=== PATIENT | female | born 1965 | race Caucasian/White ===

== ENCOUNTER → 2023-06-07 09:24 | Outpatient (REF) | payer OTHER, SELFPAY | LOC: WDC 09:24 | PROVIDERS: ATTENDING PHYSICIAN Nurse Practitioner Family; FAMILY PHYSICIAN Family Medicine | DX: N63.11 Unspecified lump in the right breast, upper outer quadrant (principal) | CPT/HCPCS: 76642; 77061; 77065 ==

== ENCOUNTER → 2024-02-09 17:11 | Outpatient (REF) | payer OTHER, SELFPAY | LOC: WDC 17:11 | PROVIDERS: ATTENDING PHYSICIAN Obstetrics & Gynecology; FAMILY PHYSICIAN Family Medicine | DX: Z12.31 Encounter for screening mammogram for malignant neoplasm of breast (principal) | CPT/HCPCS: 77063; 77067 ==

== ENCOUNTER → 2024-06-15 09:43 | Outpatient (REF) | payer OTHER, SELFPAY | LOC: RCS 09:43 | PROVIDERS: ATTENDING PHYSICIAN Orthopaedic Surgery; FAMILY PHYSICIAN Family Medicine | DX: Z01.818 Encounter for other preprocedural examination (principal) | CPT/HCPCS: 93005 ==

== ENCOUNTER 2024-06-25 22:22 | Inpatient (IN) | payer OTHER, SELFPAY ==
[2024-06-25] VITALS (21 sets, daily range): BP systolic 74–104; BP diastolic 45–55; BMI 27.4
--- NOTE | 2024-06-25 16:44 | ED.GENMED ---
History of Present Illness
General
Chief Complaint: Blood Pressure Problem
Source: patient
Exam Limitations: none
Time Seen by Provider: 06/25/24 16:35
Nursing documentation reviewed up to this point in time: agreed with
History of Present Illness
History of Present Illness:
Patient presents to Emergency Department for outpatient surgical center where she was found to have persistent hypotension with dizziness, after completing elective outpatient right hip surgery secondary to progressive arthritis. Per
anesthesiologist to observe the patient in PACU, patient received isobaric spinal with short acting mepivacaine and propofol. Secondary to hypotension, patient received total of 4 L of IV fluids, along with 2 doses of ephedrine, with minimal
improvement in blood pressure. Patient also received couple doses of Dilaudid postprocedure. At the time of evaluation ED, patient has no complaints. Denies chest pain or palpitations. Denies shortness of breath. Denies nausea or vomiting.
Denies dizziness. Denies headache. Patient does state that when she sees her primary care physician annually, her blood pressure is on the lower side.
Review of Systems
Review of Systems
Allergies reviewed?: Yes
All Other Systems: ROS reviewed and negative except as documented in HPI and ROS
Constitutional: Reports no symptoms; Denies fever or chills
Respiratory: Reports no symptoms
Cardiac: Reports other (Near syncope)
ABD/GI: Reports no symptoms
Skin: Reports no symptoms
Neurological: Reports dizzy
Phy Exam
Physical Exam
Physical Exam:
Physical Exam
General: no apparent distress, not acutely ill. afebrile
Head: nc/at. eomi
Neck: supple. no meningeal signs.
Heart: s1/s2 regular rate and rhythm, no murmur.
Lungs: no acute respiratory distress. clear bilaterally
Abdomen: normal bowel sounds. not tender.
Neuro: alert and oriented x 3. no focal neurological deficits
Skin: no rash
Psychiatric: well kept. interactive and cooperative
Extremities: right hip, post surgical swelling/discoloration noted
Course
Orders/Labs/Results
Orders:
Orders
06/25/24 16:35
Electrocardiogram (*1) Urgent
Reason for Study: Bradycardia / Tachycardia
EKG- Treatment ONCE
06/25/24 17:05
Basic Metabolic Panel Urgent
Complete Blood Count/No Diff Urgent
Ferritin Urgent
Comment: ADD ON
Iron Urgent
Comment: ADD ON
Magnesium Urgent
TSH Urgent
Total Iron Binding Urgent
Comment: ADD ON
06/25/24 17:52
Add On- LAB Urgent
Tests Added?: iron, ferritin, TIBC
06/25/24 20:30
0.9% Sodium Chloride 1000 ml [Nss] 1,000 ml IV 100 mls/hr
06/25/24 21:15
Type And Crossmatch [Type+Screen] Urgent
CBC/With Diff [Complete Blood Count/With Diff] Urgent
06/25/24 21:42
Blood Bank Products [* Blood Bank Products] Urgent
Blood Bank Products: *Packed RBC Leuko(PRBC's)
Quantity: 1
Transfuse Today: Yes
Reason: Anemia
Other reason: post op
06/25/24 21:58
Admit/Transfer Patient As Directed
Co-Sign Provider:
Level of Care: Inpatient admission
Assign to:: IMU- Intermediate Care
Physician / Group: martinez fernandez
Diagnosis: Hypotension secondary postop anemia right hip replacement
Reason for Hospitalization: Hypotension secondary postop anemia right hip replacement
Expected length of stay greater than two midnights?: Yes
ELOS- Estimated Length of Stay in days: 3
I certify the patient meets the requirements for IP care: Yes
Code Status As Directed
Resuscitation Status: Full Code
06/25/24 22:01
PRN Pain Medication Management As Directed
May give lesser potent ordered pain med per pt: Yes
preference::
Protocol:: Medication orders for pain may be administered in a
manner that supports deferring to patient preference
when the pt is:
- Requesting an ordered lesser potent pain medication.
Least to most potent pain medications are defined
as: acetaminophen < NSAID < tramadol < opioids
(morphine, oxycodone, hydromorphone).
- Requesting a lesser dose of the same medication IF
ORDERED.
- Requesting a less intrusive route of administration
if both routes are prescribed by the provider (PO <
IV).
06/25/24 22:27
Oxycodone [Roxicodone] 5 mg PO Q6H PRN
06/25/24 22:31
ABO2 Urgent
K Wristband Number:
Associate notified that ABO2 has been ordered: [id number]
Date: 06/25/24
Time: 21:27
Channel Sales Manager ID: [id number]
06/25/24 22:34
Tramadol HCl [Ultram] 100 mg PO Q6H PRN
06/25/24 22:45
Oxycodone [Roxicodone] 10 mg PO Q6H
06/25/24 23:00
Acetaminophen [Tylenol] 1,000 mg PO Q8H
Calcium Carbonate [Oscal Rodrick 500] 1,500 mg PO Q4H
Diphenhydramine [Benadryl] 25 mg PO Q6H
06/26/24 01:29
Activity As Directed
Activity Level: As Tolerated
Intake/ Output As Directed
Frequency: Per unit guidelines
Pneumatic Compression Sleeves As Directed
Type: Knee high
Vascular Checks As Directed
Location: right thigh
Frequency: q4h
Comment: Monitor for ecchymosis or compartment syndrome
Vital Signs As Directed
Frequency: Per unit guidelines
Ot Eval And Treat Routine
Pt Eval And Treat Routine
Activity Level: As Tolerated
DX Deep Vein Thrombosis Video Routine
06/26/24 05:47
Basic Metabolic Panel IN AM
Complete Blood Count/With Diff IN AM
06/26/24 Breakfast
Regular
At Your Request: Full Participation
06/26/24 08:00
Docusate Sodium [Colace] 100 mg PO BID
Gabapentin [Neurontin] 100 mg PO TID
06/26/24 22:00
Polyethylene Glycol Powder [Miralax] 17 grams PO HS
Abnormal Lab Results
06/25/24 06/25/24
17:05 21:15
WBC 10.9 H 10^3/uL
(4.8-10.8)
RBC 3.28 L 10^6/uL 2.95 L 10^6/uL
(4.20-5.40) (4.20-5.40)
Hgb 9.9 L g/dL 8.9 L g/dL
(12.0-16.0) (12.0-16.0)
Hct 29.5 L % 26.5 L %
(37.0-47.0) (37.0-47.0)
Absolute Neuts (auto) 7.5 H 10^3/uL
(1.4-6.5)
Absolute Lymphs (auto) 0.6 L 10^3/uL
(1.2-3.4)
Neutrophils % 85.6 H %
(42.2-75.2)
Lymphocytes % 6.9 L %
(20.5-51.1)
Chloride 109 H mmol/L
(98-107)
Carbon Dioxide 18 L mmol/L
(22-30)
Creatinine 0.5 L mg/dL
(0.6-1.0)
Glucose 166 H mg/dl
(70-99)
Calcium 8.2 L mg/dl
(8.4-10.2)
% Saturation 17 L %
(20-50)
TSH 0.43 L uIU/ml
(0.47-4.68)
Crossmatch IS Only See Detail
06/25/24 21:15
06/25/24 17:05
Vital Signs
Initial and Last Documented VS:
Initial Vital Signs
BP
97/55
06/25/24 16:34
Last Documented Vital Signs
Temp Pulse Resp BP Pulse Ox
98.5 F 71 19 91/57 98
06/26/24 08:32 06/26/24 12:45 06/26/24 12:45 06/26/24 12:44 06/26/24 07:49
MDM/Problems Addressed
MDM/Problems Addressed:
Primary care physician's office note from 2-year ago reviewed -blood pressure noted to be 108/68.
Anemia, likely secondary to hemodilution from administration of IV fluid boluses. Iron studies ordered.
Although patient's blood pressure remains mildly low, as patient is asymptomatic, patient will be observed without any further treatment, as patient has already received 4 L of IV fluids. Patient does state that she has been able to urinate freely
without difficulties.
Despite prolonged course of observation ED, patient's blood pressure remains labile. In addition, when rechecked with orthostatic vital signs and ambulation, patient noted to become mildly hypotensive with symptoms, i.e. dizziness/near syncope.
Patient unsafe to be discharged home at this time.
*EKG
Interpreted by ED Provider?: Yes
EKG Intrepretation Date: 06/25/24
Heart Rate: 90
Rate: normal
Rhythm: sinus
Elfrida: normal axis
Interval: normal interval
*Critical Care Note
Total Time (30-74mins, 75-104mins- exclusive of procedures): Not Applicable
ED Attending Note
-
Portions of this chart may have been created with voice recognition software.� Occasional wrong word or��sound alike� substitutions may have occurred due to the inherent limitations of voice recognition software.
Discharge Plan
Departure
Patient Disposition: Admit
Date of Disposition: 06/25/24
Time of Disposition: 20:33
Admit to: Telemetry
Presentation/result/management discussed w/ accepting MD/DO: Hospitalist
Discharge Problem:
Orthostatic hypotension, Near syncope
Interventions
Interventions:
*General Assessment Last Done: 06/25/24 16:36
*Neglect/Abuse Screening Last Done: 06/25/24 16:36
*ED- Fall Risk Assessment Last Done: 06/25/24 16:36
*ED COVID-19 Vaccine History Last Done: 06/25/24 16:36
ED- Cardiac Assessment Last Done: 06/25/24 16:42
ED- Neurological Assessment Last Done: 06/25/24 16:42
ED- Pulmonary Assessment Last Done: 06/25/24 16:42
[2024-06-25 17:31] LABS: Hematocrit 29.5 % (37.0-47.0); Hemoglobin 9.9 g/dL (12.0-16.0); Mean Corp Hgb Conc. 33.6 g/dL (33.0-37.0); Mean Corpuscular Hgb 30.2 pg (27.0-31.0); Mean Corpuscular Volume 89.9 fL (81.0-99.0); Mean Platelet Volume 9.8 fL (7.4-10.4); Platelet Count 228 10^3/uL (130-400); Red Blood Cell Count 3.28 10^6/uL (4.20-5.40); Red Cell Dist. Width 11.9 % (11.5-14.5); White Blood Cell Count 10.9 10^3/uL (4.8-10.8)
[2024-06-25 17:44] LABS: Blood Urea Nitrogen 14 mg/dl (7-17); Calcium 8.2 mg/dl (8.4-10.2); Carbon Dioxide 18 mmol/L (22-30); Chloride 109 mmol/L (98-107); Estimated Creatinine Clearance 87 ml/min; Glucose 166 mg/dl (70-99); Magnesium 1.6 mg/dl (1.6-2.3); Potassium 3.6 mmol/L (3.5-5.1); Sodium 137 mmol/L (135-145); eGFR > 60.00
[2024-06-25 18:05] LABS: Iron 51 ug/dl (37-170)
[2024-06-25 18:14] LABS: Percent Saturation 17 % (20-50); TSH 0.43 uIU/ml (0.47-4.68); Total Iron Binding Capacity 289 ug/dl (265-497)
[2024-06-25 18:39] LABS: Ferritin 82.2 ng/ml (11.1-264.0)
--- NOTE | 2024-06-25 20:38 | HPS.HSE ---
Family Physician
-
Family Physician: Mary Rawls
Chief Complaint
-
Hypotension
History of Present Illness
59-year-old female status post elective right hip surgery secondary to progressive arthritis to her right hip by Dr. Armando [facility]. Patient received ice empiric spinal with short acting mepivacaine and propofol secondary to
hypotension she received 4 L of IV fluids along with 2 doses of ephedrine with minimal improvement in her blood pressure to 80s over 50s. She did require several doses of Dilaudid postop for pain. While in the ED she continues to be persistently
hypotensive despite multiple hours in the ER. Orthostatic vitals were attempted she became mildly hypotensive with dizziness and near syncope and is unsafe to be discharged to home. She reports feeling fine while lying down but when she stands up
to walk she feels extremely dizzy as if she is going to pass out. She denies current headache, fever, chills, chest pain, palpitations, cough, shortness of breath, abdominal pain, nausea, vomiting, diarrhea, urinary symptoms. She currently does
not have any pain to the right hip. The right hip has a Merisel dressing intact with no surrounding swelling or ecchymosis distal sensation to the feet are intact dorsal pedal pulse +2
Medical History
Past Medical History
Past Medical History: Reports Other
Additional Past Medical History:
HLD
Seasonal allergies
Right hip severe DJD
Hx depression
Past Surgical History: Reports Other
Additional Past Surgical History:
Status post right hip replacement
Social History
Tobacco: Non-smoker
Alcohol: Occasional (1 glass of wine twice a month)
Drug: None
Personal:
Living: With Family
Employment: Retired
Family History
Family History: Other (Twin sister breast cancer age 35 living brother colon cancer age 35 mother living history of hyperlipidemia, HTN)
Allergies / Home Medications
Allergies reflects when Allergies were last updated in [facility].
Home Medications with original date entered in [facility]
Allergy/Medication List:
Allergies
Allergy/AdvReac Type Severity Reaction Status Date / Time
No Known Allergies Allergy Verified 06/25/24 16:35
Home Medications
Aspir-81 81 mg PO BID 06/25/24
Colace 100 mg PO BID 06/25/24
Miralax 17 mg PO HS 06/25/24
Tylenol 1,000 mg PO Q8H 06/25/24
azelastine 1 spray intranasal DAILY 06/25/24
calcium carbonate 1,500 mg PO Q4H PRN indigestion 06/25/24
diphenhydramine HCl 25 mg PO Q6H PRN rash 06/25/24
gabapentin 100 mg PO TID 06/25/24
meloxicam 7.5 mg PO BID 06/25/24
omeprazole 20 mg PO DAILY 06/25/24
oxycodone 5 mg PO Q6H PRN mod pain 06/25/24
oxycodone 10 mg PO Q6H PRN severe pain 06/25/24
rosuvastatin 10 mg tablet (Crestor) 10 mg PO DAILY 06/25/24
tramadol 100 mg PO Q6H PRN mild pain 06/25/24
Review of Systems
-
History Source: Patient and Family ()
A 12 point ROS was completed and negative except as noted: Yes
Constitutional: Denies Fever or Chills
EENT: Denies Sore Throat or Runny Nose
Respiratory: Denies Cough or Trouble Breathing
Cardiac: Denies Chest Pain, Palpitations or Syncope
Abdomen/GI: Denies Abdominal Pain, Nausea, Vomiting, Diarrhea or Constipated
: Denies Dysuria, Frequency, Flank Pain, Incontinence or Difficulty Voiding
Musculoskeletal: Reports Other (Right hip postop with Mirasel dressing intact no surrounding ecchymosis or edema)
Skin: Denies Itching or Rash
Neurological: Denies Dizzy or Headache
Endocrine: Reports No Symptoms
Hematologic/Lymphatic: Reports No Symptoms
Psych: Reports Calm
Physical Exam
Vital Signs
Vital Signs
Temp Pulse Resp BP Pulse Ox
98.1 F 60 13 88/51 94
06/25/24 16:36 06/25/24 19:15 06/25/24 19:15 06/25/24 19:00 06/25/24 19:15
Physical Exam
General: Comfortable and Conversant; No Pain, Fever or Chills
HEENT: NormoCephalic, Anicteric, Tracheostomy Collar, PERRLA, [place] Conjunctivae and No Ptosis
Respiratory: Clear; No Wheezes or Rales
Cardiac: S1/S2, Regular Rhythm, Gallop and Peripheral Edema (Right hip postop with Mirasel dressing intact no surrounding ecchymosis or edema); No Murmur or Rub
GI: Soft, Non Tender, Non Distended, Normal Bowel Sounds and No Hepatosplenomegaly
Rectal: Deferred by Provider
Genito-urinary: Deferred by me
Musculoskeletal: No Clubbing, No Cyanosis, No Edema and Other (Right hip postop with Mirasel dressing intact no surrounding ecchymosis or edema)
Skin: Warm and Dry; No Rash or Jaundice
Neuro: AO x 3, No Motor Deficits, Nonfocal/grossly intact and No Sensory Deficits; No Slurred Speech, Facial Droop, Tremors or Sedated
Psych: Calm
Laboratory Results
-
06/25/24 17:05
06/25/24 17:05
Impression/Plan
-
Impression/plan:
Inpatient IMU
#Acute hypotension status post right hip surgery today 06/25/2024 likely secondary to blood loss anemia
BP 88/51 status post prior 4 L IV fluids 2 doses of ephedrine at surgery center
Persistent hypotension despite total 5 L of IV fluid 1 L given in ER
-Hemoglobin drop at 9.9�8.9
-Per discharge instructions was to start gabapentin 100 mg 3 times daily, HOLD meloxicam 7.5 mg twice daily due to anemia,
Tylenol 1000 mg every 8 hours scheduled, oxycodone 5 mg 1 tablet every 4 hours moderate pain 2 tablets every 4 hours severe pain
-Colace 100 mg daily MiraLAX 17 g at at bedtime
-Omeprazole 20 mg daily, calcium carbonate 750 mg 1 to 2 tablets every 6 hours indigestion
#Anemia-blood loss
Hgb 9.9, MCV 89.9 CBC from 06/16/2025 were 12.6
TIBC 289, iron sat 17%, iron 51
-Will check stat CBC
-Type and screen
--Hemoglobin drop at 9.9�8.9
-Will transfuse 1 unit of blood
-Check CBC in a.m. monitor right thigh for any ecchymosis, tenting or pain
#HLD
-Continue Crestor 10 mg daily
#Seasonal allergies
Patient uses Azelastine nasal spray 137 mcg 1 spray each nostril daily
DVT prophylaxis
SCDs
Hold aspirin 81 mg twice daily now
full code
[2024-06-25] MEDS: NSS 1000 IV (20:58)
[2024-06-25 21:22] LABS: % Basophils 0.1 % (0-2); % Immature Granulocytes 0.5 % (0-0.5); % Lymphocytes 6.9 % (20.5-51.1); % Monocytes 6.9 % (1.7-9.3); % Neutrophils 85.6 % (42.2-75.2); Absolute Lymphocytes 0.6 10^3/uL (1.2-3.4); Absolute Monocytes 0.6 10^3/uL (0.1-0.6); Absolute Neutrophils 7.5 10^3/uL (1.4-6.5); Hematocrit 26.5 % (37.0-47.0); Hemoglobin 8.9 g/dL (12.0-16.0); Mean Corp Hgb Conc. 33.6 g/dL (33.0-37.0); Mean Corpuscular Hgb 30.2 pg (27.0-31.0); Mean Corpuscular Volume 89.8 fL (81.0-99.0); Mean Platelet Volume 9.6 fL (7.4-10.4); Nucleated Red Blood Cells % 0 %; Platelet Count 197 10^3/uL (130-400); Red Blood Cell Count 2.95 10^6/uL (4.20-5.40); Red Cell Dist. Width 11.9 % (11.5-14.5); White Blood Cell Count 8.8 10^3/uL (4.8-10.8)
--- NOTE | 2024-06-25 21:48 | W.PN.UPDATE ---
Update Note
Progress Note Update
This is an addendum to the H&P written by Barbara Tse on 06/25/2024.
59-year-old female past medical history of elective right hip surgery secondary to progressive arthritis today, hypercholesteremia, depression presenting from outpatient surgical center for persistent hypotension after elective right hip surgery
today.� She received empiric spinal with short acting mepivacaine and propofol.� She received 2 dose of ephedrine and 4 L of IV fluids with minimal improvement in her blood pressure over 80s over 50s.
Her normal blood pressure is around 100s.�
Hemoglobin of 9.9 initially,�and now 8.9 from 12.5 on June 16 likely dilutional from IV fluids given at surgical center.�
On examination no hematoma.�
Blood pressure improving currently to her baseline of 100 systolic.� Continue IV fluids.� 1 unit of blood.�
[2024-06-26] VITALS (21 sets, daily range): BP systolic 85–123; BP diastolic 45–68; PULSE 59–76; O2SAT 97–99
[2024-06-26] MEDS: ROXICODONE 10 MG PO ×2 (01:20→09:31)
[2024-06-26] MEDS: OSCAL CAL 500 1500 MG PO ×4 (01:21→12:50)
[2024-06-26] MEDS: TYLENOL 1000 MG PO ×2 (01:21→09:32)
[2024-06-26 06:20] LABS: % Basophils 0.1 % (0-2); % Immature Granulocytes 0.5 % (0-0.5); % Lymphocytes 17.2 % (20.5-51.1); % Neutrophils 70.2 % (42.2-75.2); Absolute Immature Granulocytes 0.1 10^3/uL (0-0.05); Absolute Lymphocytes 1.8 10^3/uL (1.2-3.4); Absolute Monocytes 1.3 10^3/uL (0.1-0.6); Absolute Neutrophils 7.3 10^3/uL (1.4-6.5); Hematocrit 29.8 % (37.0-47.0); Hemoglobin 10.1 g/dL (12.0-16.0); Mean Corp Hgb Conc. 33.9 g/dL (33.0-37.0); Mean Corpuscular Hgb 30.5 pg (27.0-31.0); Mean Platelet Volume 10.2 fL (7.4-10.4); Nucleated Red Blood Cells % 0 %; Platelet Count 203 10^3/uL (130-400); Red Blood Cell Count 3.31 10^6/uL (4.20-5.40); Red Cell Dist. Width 12.3 % (11.5-14.5); White Blood Cell Count 10.4 10^3/uL (4.8-10.8)
[2024-06-26 06:31] LABS: Blood Urea Nitrogen 10 mg/dl (7-17); Calcium 9.1 mg/dl (8.4-10.2); Carbon Dioxide 26 mmol/L (22-30); Chloride 110 mmol/L (98-107); Estimated Creatinine Clearance 87 ml/min; Glucose 102 mg/dl (70-99); Potassium 3.8 mmol/L (3.5-5.1); Sodium 138 mmol/L (135-145); eGFR > 60.00
[2024-06-26] MEDS: NSS 1000 IV (07:53)
[2024-06-26] MEDS: OSCAL CAL 500 PO (07:55)
[2024-06-26] MEDS: COLACE 100 MG PO (09:30)
[2024-06-26] MEDS: NEURONTIN 100 MG PO (09:31)
[2024-06-26] MEDS: ROXICODONE PO (12:47)
--- NOTE | 2024-06-26 13:05 | W.DCSUMMARY ---
Discharge Summary
Discharge Data
Date of Admission: 06/25/24
Date of Discharge: 06/26/24
-
Pending Results: No
Hospital Course
59 female history of hyperlipidemia right hip DJD D s/p right LINDY a, depression
Presented postoperatively after a right total hip arthroplasty for hypotension. Required multiple fluid boluses along with brief vasopressor support. Hemoglobin at the beginning of June 2024 was in the 12's. Repeat check was in the nines and
then 8. Anemia was associated with dizziness on standing. Received 1 unit of PRBCs. Blood pressure improved. Orthostatics negative.
Repeat CBC as outpatient with primary care.
Will need to see ortho as an outpatient as well.
Discharge home once seen by physical therapy/Occupational Therapy
Seen and examined on day of discharge.
States that the oxycodone 10 mg is too strong for her. Recommend not to use this or decrease dose to 5 mg
Otherwise no new complaints. Stood up without any dizziness
No back pain/abdominal pain
NAD
Scleral Anicteric
MMM
No JVD
CTABL
RRR, S1/S2
Soft, NT, ND, BS+
Right hip without evidence of hematoma or significant bruising. Bandages appear clean dry and intact. Area is soft and sensations are intact
Warm, Dry
AAOx3
Calm
More than 30 minutes spent in discharge including
Final examination of the patient
Summarizing hospital stay
Instructions for continuing care to all relevant caregivers
Preparation of discharge records, prescriptions, and referral forms
Total time spent (in minutes): 28mins
Discharge Plan
-
Patient Disposition: Home (Routine Discharge)
Discharge Diagnosis/Procedures: Hypotension
Symptomatic anemia requiring 1 unit PRBC
Condition: Good
Diet: As tolerated
Activity: As tolerated
Blood Work: cbc in 1 week with family provider
Other Services: VN, PT and OT
Activity Restrictions/Additional Instructions:
Presented postoperatively after a right total hip arthroplasty for hypotension. Required multiple fluid boluses along with brief vasopressor support. Hemoglobin at the beginning of June 2024 was in the 12's. Repeat check was in the nines and
then 8. Anemia was associated with dizziness on standing. Received 1 unit of PRBCs. Blood pressure improved. Orthostatics negative.
Repeat CBC as outpatient with primary care.
Will need to see ortho as an outpatient as well.
Referrals:
Mary Rawls DO [Family Provider] -
Additional Discharge Medication Instructions: Take NSAIDs with food
-Do not take meloxicam naproxen together.
Prescriptions:
Continued
polyethylene glycol 3350 [Miralax] 17 gram Powder In Packet
17 g PO HS
Tums 300 mg (750 mg) Tablet,Chewable
900 mg PO BID
aspirin 81 mg Tablet,Delayed Release (Dr/Ec)
81 mg PO BID
tramadol 50 mg Tablet
50 mg PO Q6H PRN (Reason: moderate pain)
meloxicam 7.5 mg Tablet
7.5 mg PO BID
diphenhydramine HCl 25 mg Tablet
25 mg PO Q6HPRN PRN (Reason: itch)
gabapentin 100 mg Capsule
100 mg PO TID
azelastine 137 mcg (0.1 %) Post,Non-Aerosol
1 spray INTRANASAL BID
cholecalciferol (vitamin D3) [Vitamin D3] 10 mcg (400 unit) Tablet
10 mcg PO DAILY
rosuvastatin 10 mg Tablet
10 mg PO QPM
omeprazole 20 mg Capsule,Delayed Release(Dr/Ec)
20 mg PO DAILY
oxycodone 5 mg Tablet
10 mg PO Q6H PRN (Reason: sever pain)
acetaminophen 500 mg Tablet
1,000 mg PO Q8HPRN PRN (Reason: mild pain)
Discontinued
naproxen sodium [Aleve] 220 mg Tablet
220 mg PO DAILYPRN PRN (Reason: maild pain)
Discharge Orders:
Discharge Patient (As Directed); Ordered 06/26/24
Ordered By: Rodney Petersen
Discharge Date and Time
Print Language: SAUDI ARABIAN
--- NOTE | 2024-06-26 13:43 | CM ---
CM reviewed chart and noted dc order
Pt had outpt R LINDY with [facility]
Lives at home with spouse, 2SH, 2STE, 13 steps up
Already has [facility] and [facility]
Has already been set up for post-op [facility] home therapy
Discussion with PT/OT-No other VN/outpt therapy needs to be set up at this time
Spouse will transport home
Discharge Disposition- home, no needs
== END 2024-06-26 15:13 | disposition home or self-care (01) | DRG 312 ==
LOC: ED 22:22
PROVIDERS: Clinical Nurse Specialist Family Health; ADMITTING PHYSICIAN Hospitalist; ATTENDING PHYSICIAN Hospitalist; EMERGENCY PHYSICIAN Emergency Medicine; FAMILY PHYSICIAN Family Medicine
DX: I95.81 Postprocedural hypotension (principal); D50.0 Iron deficiency anemia secondary to blood loss (chronic); E78.5 Hyperlipidemia, unspecified; J30.2 Other seasonal allergic rhinitis; Z79.82 Long term (current) use of aspirin; Z79.899 Other long term (current) drug therapy; Z80.0 Family history of malignant neoplasm of digestive organs; Z80.3 Family history of malignant neoplasm of breast; Z82.49 Family history of ischemic heart disease and other diseases of the circulatory system; Z83.49 Family history of other endocrine, nutritional and metabolic diseases; Z96.641 Presence of right artificial hip joint
CPT/HCPCS: 80048; 82728; 83540; 83550; 83735; 84443; 85025; 85027; 86850; 86900; 86901; 86920; 93005; 97116; 97162; 97166; 99285; P9016

== ENCOUNTER 2025-01-01 06:19 | Day surgery (SDC) | payer OTHER, SELFPAY | END 2025-01-01 10:46 | disposition home or self-care (01) | LOC: GI 06:19 | PROVIDERS: ATTENDING PHYSICIAN Surgery; FAMILY PHYSICIAN Family Medicine | DX: Z12.11 Encounter for screening for malignant neoplasm of colon (principal); K57.30 Diverticulosis of large intestine without perforation or abscess without bleeding; Z80.0 Family history of malignant neoplasm of digestive organs; Z86.0102 Personal history of hyperplastic colon polyps | CPT/HCPCS: G0105 ==